=== PATIENT | male | born 1990 | race African-American/Black ===

== ENCOUNTER 2016-11-17 14:10 | Emergency (ER) | payer BC, OTHER ==
--- NOTE | ~2016-11-17 | CR187 ---
[facility] A Service of [facility] & [facility] RADIOLOGY TEXT RESULTS PATIENT: VICKY KWON LOCATION: CFTX : 86 UNIT #: [id number] AGE: [address]: Marianela Terrell SEX: M ORDER DR: [id number] [facility] [address] [place], [place] [address] [id number] E MR#: [id number] Acc #: [id number] NAME: VICKY KWON : 1990 SEX: M STUDY DATE/TIME: 11/17/2016 14:40 UNIT: [facility] ROOM: STUDY DESCRIPTION: CR Mandible Min 4 View Attending Physician: Marianela Terrell P.A.-C. Ordering Physician: Marianela Terrell P.A.-C. Primary Care Physician: No Primary Care Physician MEDICAL IMAGING REPORT This report is preliminary unless electronic signature is present EXAM Mandible 11/17/2016 HISTORY 26-year-old male, injury to right jaw, boxing 1 week ago. Right jaw pain. FINDINGS Four views of the mandible demonstrate no fracture. I see no abnormality of the TM joint. Right third molar appears unerupted and slightly impacted. IMPRESSION Negative mandible. Dictated by... Papi Rucker M.D. THIS IS AN ELECTRONICALLY VERIFIED REPORT Papi Rucker M.D. at 11/18/2016 8:11 AM Jasmyn TD: 11/17/2016 17:07 JOB #: [id number] MEDICAL IMAGING REPORT Page 1 of 1 COPY
[~2016-11-17 14:10] MED LIST: AMOXICILLIN500 M1 PO; BACTRIM DS TABL1 TA1 PO; MULTI-VITAMIN1 EAC1 PO; NASAL SPRAY; NO MEDICATIONS; NORFLEX100 MG PO; PHENERGAN25 MG PO; VOLTAREN75 MG PO
== END 2016-11-17 15:45 | disposition home or self-care (01) ==
LOC: CFTX 14:10 → CED 14:10 → CFTX 15:20
DX: S03.41XA Sprain of jaw, right side, initial encounter (principal); Y04.2XXA Assault by strike against or bumped into by another person, initial encounter; Y92.39 Other specified sports and athletic area as the place of occurrence of the external cause
CPT/HCPCS: 70110; 99283